=== PATIENT | female | born 1950 | race Caucasian/White ===

== ENCOUNTER 2018-05-11 13:06 | Observation (INO) | payer OTHER ==
--- OUTSIDE RECORDS SUMMARY | 2018-05-11 13:18 | XMS REPORT | Continuity of Care Document ---
:1950 Author Organization Interface Problems Problem Status Onset Classification Date Comments Source Date Reported G20 - Active [address] [facility] Active [facility] Medications Medication Details Route Status Patient Ordering Order Source Instructions Provider Date Allergies, Adverse Reactions, Alerts Substance Category Reaction Severity Reaction Status Date Comments Source type Reported Immunizations Immunization Date Given Site Status Last Updated Comments Source Results Order Results Value Reference Date Interpretation Comments Source Name Range Brain Brain EXAM: [place] [facility]PECT 10/02 - [facility] scan /2016 - [facility] SPECT SPECT [place] This report was dictated by a Box Lidder/ Fellow. I have personally reviewed the images as [facility] well as the Resident's interpretation and agree with the findings. DATE: 10/02/2017 1157 AM SPOT WASHER Read by: Aba Hutton MD Resident: Aba Hutton MD Dictated Date/time: 10/02/17 13:42 Electronically Signed by: Raquel Gunter MD 10/02/17 17:01 FINAL REPORT INDICATION: Evaluate for Parkinson disease COMPARISON: None. TECHNIQUE: After intravenous administration of 5.3 mCi of I-123 Ioflupane, delayed SPECT images of the head were obtained at 4 hours post injection. FINDINGS: Right striatum: There is markedly decreased tracer uptake in the right putamen with a Z score of -4.1 (Z scores represent standard deviation from normal age match population and are significant if less than -1.6). Moderately decreased tracer uptake in the right caudate with a Z score of - 3.9. The right striatum contributes 29% of the remaining dopamine transporter function with a Z score of -4.1 . Left striatum: Markedly decreased tracer uptake in the left putamen with a Z score of - 3.9. Tracer uptake is mildly decreased in the left caudate, though with the most uptake relative to the other portions of the bilateral basal ganglia and with a Z score of -3.7. The left striatum contributes 71% of the remaining dopamine transporter function with a Z score of -3.9 . The remainder of tracer distribution in background brain parenchyma is within normal limits. IMPRESSION: The scan findings are suggestive of dysfunction of the dopamine transporters in the bilateral basal ganglia, right striatum is worse than left striatum, suggestive of Parkinson's disease. Vital Signs Vital Sign Value Date Comments Source Encounters Location Location Encounter Encounter Reason Attending ADM DC Status Source Details Type Number For Provider Date Date Visit [facility] [id number] Jose G 10/02 10/03 Elian Mcgrath [place] /2016 [facility] Procedures Procedure Code Date Perfomer Comments Source
[2018-05-11] MEDS ORDERED: D50W 25 GM/50 ML SYRINGE IV PRN (13:31)
[2018-05-11] MEDS ORDERED: GLUCAGON 1 MG/VIAL IM PRN (13:31)
[2018-05-11] MEDS ORDERED: NA CHLORIDE 0.9% 1,000 ML IV SCH (14:00)
[2018-05-11 14:16] LABS: Absolute Lymphocytes (CBC) 2.2 K/uL (0.7-4.9); Absolute Monocytes 0.6 K/uL (0.1-1.3); Basophils % 0.9 % (0-1.3); Eosinophils % 0.8 % (0-4.4); Hematocrit 40.4 % (36.0-45.0); Lymphocytes % 21.9 % (15.3-44.8); MCH 29.6 pg (27.0-35.0); MPV 8.5 fL (7.6-11.3); Monocytes % 6.4 % (3.3-12.3)
[2018-05-11 14:48] LABS: Potassium 3.4 mmol/L (3.5-5.1)
--- NOTE | 2018-05-11 15:25 | EKG ---
Test Date: 2018-05-11 Test Time: 14:49:58 [facility] Specialist: FRANKY MEASUREMENT RESULTS: Intervals: Rate: 60 ID: [id number] QRSD: 88 QT: 466 QTc: 466 Marlin: P: 57 ID: [id number] QRS: -9 T: 13 INTERPRETIVE STATEMENTS: Normal sinus rhythm Nonspecific ST abnormality Abnormal ECG Compared to ECG 10/27/2013 05:26:32 ST (T wave) deviation now present Myocardial infarct finding no longer present Electronically Signed On 05-11-18 15:24:53 CDT by Ben Millan
[2018-05-11] MEDS: INSULIN -REGULAR HUMAN 50 UNIT/0.5 ML ML SQ SCH ×2 (16:30→21:00)
[2018-05-11 17:14] VITALS: BMI 24.7
[2018-05-11] MEDS ORDERED: [UNRECOGNIZED DRUG - REMARK] PO PRN (18:01)
[2018-05-11] MEDS ORDERED: MAGNESIUM HYDROX PO PRN (18:01)
[2018-05-11] MEDS ORDERED: CALCIUM CARB PO PRN (18:01)
--- NOTE | 2018-05-11 19:38 | RAD REPORT ---
EXAM DESCRIPTION: US - Abdomen Exam Complete - 05/11/2018 7:20 pm CLINICAL HISTORY: Abdominal pain COMPARISON: 2010 FINDINGS: The liver has a homogeneous echotexture. A gallstone is not seen. The gallbladder wall is not thickened. The biliary tree is normal caliber. The pancreas was not well visualized secondary overlying bowel gas The right kidney measures 9 centimeters with a normal echotexture. The left kidney measures 10 centimeters with a normal echotexture. The spleen measures 12 centimeters. The abdominal aorta and inferior vena cava appear unremarkable IMPRESSION: Limited evaluation pancreas. Otherwise unremarkable exam
[2018-05-11] MEDS ORDERED: LEVODOPA PO SCH (21:00)
[2018-05-11] MEDS ORDERED: MILNACIPRAN HCL 50 MG PO SCH (21:00)
[2018-05-11] MEDS ORDERED: CYCLOSPORINE OP SCH (21:00)
[2018-05-11] MEDS ORDERED: HOME MED 1 EA UNK (Cholecalciferol (Vitamin D3) [Vitamin D3] 5,000 UNIT) PO SCH (21:00)
[2018-05-11] MEDS ORDERED: CARBIDOPA PO SCH (21:00)
[2018-05-11] MEDS: VITAMIN D 5,000 UNIT CAP PO SCH (21:52)
[2018-05-11] MEDS: DONEPEZIL HCL 5 MG TAB PO SCH (21:52)
[2018-05-11] MEDS: METOPROLOL XL 25 MG TAB PO SCH (21:52)
[2018-05-11] MEDS: NA CHLORIDE 0.9% 1,000 ML IV SCH (22:00)
[2018-05-11 22:31] LABS: Urine Appearance CLEAR; Urine Bilirubin NEGATIVE (NEG); Urine Blood NEGATIVE (NEG); Urine Color YELLOW; Urine Glucose NEGATIVE (NEG); Urine Protein NEGATIVE (NEG); Urine Urobilinogen 0.2 mg/dL (0.2-1.0); Urine pH 6.5 (5.0-7.0)
[2018-05-11 22:51] LABS: Urine Microscopic Reflex NO UMIC
[2018-05-12] MEDS: NA CHLORIDE 0.9% 1,000 ML IV SCH ×3 (00:49→18:58)
[2018-05-12] MEDS: ONDANSETRON 4 MG/2 ML VIAL IV PRN ×2 (04:00→11:02)
[2018-05-12 04:30] LABS: Amylase Level 74 U/L (25-115); Lipase 324 U/L (73-393)
[2018-05-12] MEDS: INSULIN -REGULAR HUMAN 50 UNIT/0.5 ML ML SQ SCH ×4 (07:30→20:45)
[2018-05-12] MEDS ORDERED: HYDROCHLOROTHIAZIDE PO SCH (09:00)
[2018-05-12] MEDS ORDERED: IRBESARTAN PO SCH (09:00)
[2018-05-12] MEDS ORDERED: HOME MED 1 EA UNK (Cyanocobalamin (Vitamin B-12) [Vitamin B12] 2,500 MCG) PO SCH (09:00)
[2018-05-12] MEDS: IRBESARTAN 150 MG TAB PO SCH (09:43)
[2018-05-12] MEDS: CYANOCOBALAMIN 1,000 MCG TAB PO SCH (09:44)
[2018-05-12] MEDS: ASPIRIN EC 81 MG TAB PO SCH (09:44)
[2018-05-12] MEDS: ATORVASTATIN 40 MG TAB PO SCH (09:45)
[2018-05-12] MEDS: DONEPEZIL HCL 5 MG TAB PO SCH ×2 (09:45→20:47)
[2018-05-12] MEDS: MULTIVITAMIN TAB PO SCH (09:45)
[2018-05-12] MEDS: SERTRALINE HCL 50 MG TAB PO SCH (09:45)
[2018-05-12] MEDS: hydroCHLOROthiazide 12.5 MG CAP PO SCH (09:45)
[2018-05-12] MEDS: VITAMIN D 5,000 UNIT CAP PO SCH ×2 (09:45→20:46)
[2018-05-12] MEDS: METOPROLOL XL 50 MG TAB PO SCH (09:51)
[2018-05-12] MEDS: MILNACIPRAN HCL 50 MG PO SCH ×2 (11:04→20:42)
[2018-05-12] MEDS: CYCLOSPORINE OP SCH ×2 (11:07→20:43)
[2018-05-12] MEDS: CARBIDOPA/LEVODOPA 25/100 TAB PO SCH (13:02)
[2018-05-12] MEDS: ALPRAZOLAM 0.25 MG TABLET PO PRN (20:44)
[2018-05-12] MEDS: METOPROLOL XL 25 MG TAB PO SCH (20:46)
[2018-05-12] MEDS ORDERED: CARBIDOPA PO SCH (21:00)
[2018-05-12] MEDS ORDERED: LEVODOPA PO SCH (21:00)
[2018-05-13] MEDS: NA CHLORIDE 0.9% 1,000 ML IV SCH ×3 (02:03→14:00)
[2018-05-13] MEDS: INSULIN -REGULAR HUMAN 50 UNIT/0.5 ML ML SQ SCH ×3 (07:30→16:30)
[2018-05-13] MEDS: hydroCHLOROthiazide 12.5 MG CAP PO SCH (08:43)
[2018-05-13] MEDS: ALPRAZOLAM 0.25 MG TABLET PO PRN (08:43)
[2018-05-13] MEDS: METOPROLOL XL 50 MG TAB PO SCH (08:44)
[2018-05-13] MEDS: IRBESARTAN 150 MG TAB PO SCH (08:44)
[2018-05-13] MEDS: CYCLOSPORINE OP SCH (08:46)
[2018-05-13] MEDS: MILNACIPRAN HCL 50 MG PO SCH ×2 (08:46→13:06)
[2018-05-13] MEDS: ATORVASTATIN 40 MG TAB PO SCH ×2 (08:47→13:04)
[2018-05-13] MEDS: ASPIRIN EC 81 MG TAB PO SCH ×2 (08:47→13:02)
[2018-05-13] MEDS: DONEPEZIL HCL 5 MG TAB PO SCH ×2 (08:47→13:05)
[2018-05-13] MEDS: MULTIVITAMIN TAB PO SCH ×2 (08:47→13:05)
[2018-05-13] MEDS: SERTRALINE HCL 50 MG TAB PO SCH ×2 (08:48→13:04)
[2018-05-13] MEDS: CYANOCOBALAMIN 1,000 MCG TAB PO SCH ×2 (08:48→13:03)
[2018-05-13] MEDS: VITAMIN D 5,000 UNIT CAP PO SCH ×2 (08:48→13:04)
[2018-05-13] MEDS ORDERED: NA CHLORIDE 0.9% 1,000 ML ONE (09:22)
[2018-05-13] MEDS ORDERED: PROPOFOL 200 MG/20 ML VIAL IV ONE (10:44)
[2018-05-13] MEDS ORDERED: LIDOCAINE 1% MPF 2 ML AMPULE ONE (10:44)
[2018-05-13 12:02] VITALS: O2SAT 96
[2018-05-13] MEDS: CARBIDOPA/LEVODOPA 25/100 TAB PO SCH (13:05)
--- NOTE | 2018-05-13 13:54 | CON ---
Date of Consultation: 05/13/2018 Reason For Consultation: Persistent nausea for 4 months. History Of Present Illness: The patient is a 67-year-old white female with history of diabetes, Park inson disease, depression, hyperlipidemia. The patient admitted to hospital with nausea over 4 month s of an unknown etiology. The patient has occasional vomiting she reports. She also has some mild r ight and left lower quadrant pain with gurgling loud stomach sounds she reports. She had negative co lonoscopy approximately 10 years ago and sent for EGD. Past Medical History: Significant for diabetes, Parkinson disease, hyperlipidemia, depression, foot surgery, tubal ligation, sinus surgery, and carpal tunnel surgery. Social History: She is . No kids. No tobacco. No alcohol. Family History: Father of cancer of unknown type. Mother of stroke with an embolus to her brain she reports. Medications: See list. Physical Examination: Vital Signs: The patient's temperature is 97.9 degrees Fahrenheit, pulse 79, respirations approximat kaylan 18, blood pressure 152/85, height 5 feet 3 inches, weight of 139 pounds. General: She is a well-developed, well-nourished female, lying in bed, in no acute distress. HEENT: Normocephalic, atraumatic. Anicteric. Pupils equal, round, and reactive to light. Extraocu lar movements are intact. Neck: Supple. No masses. Respirations: Clear to auscultation bilaterally. Cardiac: Regular rate and rhythm. No gallops or rubs. Abdomen: Positive bowel sounds. Soft, not distended. Some mild right and left lower quadrant tende rness. Extremities: No clubbing, cyanosis, or edema. 2+ pulses. neuro: Alert, oriented x3, grossly nonfocal. 5/5 motor strength. Sensation to light touch. Data: Computer output not available currently. Impression: Persistent nausea, vomiting over the past 4 months with only rare emesis. We will need to investigate with EGD. Current workup today has been negative by primary care on this hospital adm ission. Recommendation: Proceed with EGD evaluation. PPI therapy. Continue conservative management. RACQUEL/DANDRE Voice ID: [id number] Report ID: [id number]
[2018-05-13] MEDS: ONDANSETRON 4 MG/2 ML VIAL IV PRN (16:02)
[2018-05-13 17:06] VITALS: BP 143/73; TEMP 97.8
--- NOTE | 2018-05-13 19:17 | PN ---
Subjective: The patient states she feels somewhat better, but not really a lot. Her appetite is imp roved somewhat. Her strength is improved somewhat. She is now more mobile. Her pancreatic enzymes on 2 occasions are both within normal. It was felt that she should undergo an EGD and consultation w as obtained with printed circuit boards stripper etcher to do this. Depending on the outcome, patient may be up to be di scharged in a.m. with possibility of the increased pancreatic enzymes being secondary to Januvia. Th erefore, another medication will be started as an outpatient. Although, her blood sugars have been s table in here without any medication. HR/MODL Voice ID: [id number] Report ID: [id number]
[2018-05-13] MEDS ORDERED: SODIUM CHLORIDE 0.9% 10ML INJ IV SCH (21:00)
[2018-05-13] MEDS ORDERED: PANTOPRAZOLE 40 MG INJ IV SCH (21:00)
--- NOTE | 2018-05-14 19:36 | PN ---
Date of Progress Note: 05/13/2018 The patient states she feels considerably better. Still has some nausea according to the family, tho ugh she is much more alert, eating much better and much more mobile. She will therefore be discharge d. Endoscope revealed gastritis, awaiting biopsy report. Her sugars have been stable while she is h ere, feels more or likely secondary to medication effects of one of her drugs, possibly the diabetic medicine, anyway she was told to withhold her diabetic medications, monitor sugar and only take them if they start rising. She is to be seen in 1 week. HR/MODL Voice ID: [id number] Report ID: [id number]
== END 2018-05-13 17:39 | disposition home or self-care (01) ==
LOC: 4TH 13:16
PROVIDERS: ADMIT Family Medicine; ATTEND Family Medicine
PROC: 0DB68ZX Excision of Stomach, Via Natural or Artificial Opening Endoscopic, Diagnostic (ICD-10-PCS; principal; 2018-05-13 12:00)
DX: K29.70 Gastritis, unspecified, without bleeding (principal); E86.0 Dehydration; F32.9 Major depressive disorder, single episode, unspecified; E11.9 Type 2 diabetes mellitus without complications; I10 Essential (primary) hypertension; G20 Parkinson's disease
CPT/HCPCS: 36415; 43239; 76700; 80048; 81003; 82150 ×2; 82962 ×9; 83690 ×2; 85025; 87077; 87086; 87088; 87186; 88305; 88312; 93005; J2001; J2405 ×3; J7030 ×6; G0378